=== PATIENT | female | born 1980 | race American Indian/Alaskan Native ===

== ENCOUNTER 2017-01-14 10:01 | Inpatient (IN) | payer MEDICAID, OTHER ==
[2017-01-14 10:02] VITALS: BMI 45.4
--- NOTE | 2017-01-14 11:02 | C.PDOC ---
Time Seen by Provider: 01/14/17 10:34 Chief Complaint (Nursing): Abnormal Labs Past Medical History Vital Signs: Last Vital Signs Temp 98.2 F 01/14/17 10:21 Pulse 74 01/14/17 10:21 Resp 20 01/14/17 10:21 BP 100/66 01/14/17 10:21 Pulse Ox 100 01/14/17 10:21 - Medical History PMH: Arthritis, Depression, Pneumonia (AGE 13) Denies: Chronic Kidney Disease - [facility] Procedures ESOPHAGOGASTRODUODENOSCOPY [EGD] W/CLOSED BIOPSY (03/08/14) REV JT REPL LOW EXT NEC (04/16/15) - Social History Hx Alcohol Use: No Hx Substance Use: No - Immunization History Hx Tetanus Toxoid Vaccination: No Hx Influenza Vaccination: No Hx Pneumococcal Vaccination: No ED Course And Treatment O2 Sat by Pulse Oximetry: 100
--- NOTE | 2017-01-14 11:10 | C.PDOC ---
History Of Present Illness 36 y/o female with Hx of Chronic Anemia presents to ED sent my PMD for low Hemoglobin and Hematrocrit results done on 01/08/17. Patient states "lowest it's been was 8" but is unsure of baseline. Onset Patient complaints of weakness and dyspnea on exertion for 1 week. Patient was previously advised to take iron supplements but it noncompliant. Patient denies heavy Menses, Peptic Ulcer Disease, GI Bleed or any other complaints at this time. REFERRED BY PMD FOR LOW H/H S/P OUTPT LABS 01/08. PS HAS CHRONIC ANEMIA "LOWEST IT 'S BEEN WAS 8" BUT DOES NOT KNOW BASELINE. NEW ONSET GEN WEAKNESS, VELASCO X 1 WEEK. PS WAS PREV ADVISED TO TAKE IRON SUPPLEMENTS BUT IS NONCOMPLIANT. DENIES HO HEAVY MENSES, PUD, GI BLEED EXAM NEG Time Seen by Provider: 01/14/17 10:34 Chief Complaint (Nursing): Abnormal Labs History Per: Patient History/Exam Limitations: no limitations Onset/Duration Of Symptoms: Days Current Symptoms Are (Timing): Still Present Past Medical History Reviewed: Historical Data, Nursing Documentation, Vital Signs Vital Signs: Last Vital Signs Temp 98.2 F 01/14/17 10:21 Pulse 74 01/14/17 10:21 Resp 20 01/14/17 10:21 BP 100/66 01/14/17 10:21 Pulse Ox 100 01/14/17 11:34 - Medical History PMH: Arthritis, Depression, Pneumonia (AGE 13) - [facility] Procedures ESOPHAGOGASTRODUODENOSCOPY [EGD] W/CLOSED BIOPSY (03/08/14) REV JT REPL LOW EXT NEC (04/16/15) Family History: States: No Known Family Hx - Social History Hx Alcohol Use: No Hx Substance Use: No - Immunization History Hx Tetanus Toxoid Vaccination: No Hx Influenza Vaccination: No Hx Pneumococcal Vaccination: No Review Of Systems Except As Marked, All Systems Reviewed And Found Negative. Constitutional: Negative for: Fever, Chills Respiratory: Positive for: Other (Dyspnea) Gastrointestinal: Negative for: Nausea, Vomiting, Diarrhea Neurological: Positive for: Weakness. Negative for: Headache Physical Exam - Physical Exam Appears: Non-toxic, No Acute Distress Skin: Normal Color, Warm Head: Atraumatic, Normacephalic Oral Mucosa: Moist Throat: Normal Neck: Normal ROM Cardiovascular: Rhythm Regular Respiratory: No Rales, No Rhonchi, No Wheezing Gastrointestinal/Abdominal: Soft, No Tenderness, No Guarding, No Rebound Extremity: Normal ROM, Capillary Refill (<2 seconds ) Neurological/Psych: Oriented x3, Normal Speech, Normal Cognition ED Course And Treatment - Laboratory Results Result Diagrams: 01/14/17 11:34 01/14/17 11:34 O2 Sat by Pulse Oximetry: 100 (RA) Pulse Ox Interpretation: Normal Progress - Re-Evaluation Re-evaluation Note: 01/14/17 12:07 D/W DR JIANG WILL ADMIT - Data Reviewed Data Reviewed: Lab, Diagnostic imaging, EKG, Old records - Continuity of Care Discussed patient case with:: Patient, PMD Disposition Counseled Patient/Family Regarding: Studies Performed, Diagnosis - Disposition Disposition: HOSPITALIZED Disposition Time: 12:37 Condition: STABLE - POA Present On Arrival: None - Clinical Impression Clinical Impression: Severe anemia - PA / WELLNESS MANAGER / Resident Statement MD/DO has reviewed & agrees with the documentation as recorded. MD/DO has examined the patient and agrees with the treatment plan. - Scribe Statement The provider has reviewed the documentation as recorded by the Ralphibodilon Doss All medical record entries made by the Mojgan were at my direction and personally dictated by me. I have reviewed the chart and agree that the record accurately reflects my personal performance of the history, physical exam, medical decision making, and the department course for this patient. I have also personally directed, reviewed, and agree with the discharge instructions and disposition. Decision To Admit - Pt Status Changed To: Hospital Disposition Of: Inpatient - Admit Certification Admit to Inpatient:: After my assessment, the patient will require hospitalization for at least two midnights. This is because of the severity of symptoms shown, intensity of services needed, and/or the medical risk in this patient being treated as an outpatient. - InPatient: Physician Admission Certification: I certify that this patient requires 2 or more midnights of care for the following reason:: SEE NOTE - . Bed Request Type: Regular Admitting Physician: Charly Jiang Patient Diagnosis: Severe anemia
[2017-01-14 11:38] LABS: BASO # 0.1 K/uL (0.0-0.2); BASO % 1.5 % (0.0-2.0); EOS # 0.1 K/uL (0.0-0.7); EOS % 2.1 % (0.0-4.0); HEMATOCRIT 19.9 % (34.0-47.0); LYMPH # 1.7 K/uL (1.0-4.3); LYMPH % 38.5 % (20.0-40.0); MEAN CELL VOLUME 53.9 fL (81.0-99.0); MEAN CORPUSCULAR HEMOGLOBIN 15.6 pg (27.0-31.0); MEAN CORPUSCULAR HGB CONC 28.9 g/dL (33.0-37.0); MEAN PLATELET VOLUME 8.7 fL (7.2-11.7); MONO # 0.5 K/uL (0.0-0.8); MONO % 10.3 % (0.0-10.0); NRBC % 0.1 % (0.0-2.0); RED CELL DISTRIBUTION WIDTH 20.7 % (11.5-14.5); WHITE BLOOD COUNT 4.4 K/uL (4.8-10.8)
[2017-01-14 11:44] LABS: CHLORIDE 103 mmol/L (98-107); SODIUM 136 mmol/L (132-148)
[2017-01-14 11:47] LABS: BLOOD UREA NITROGEN 8 mg/dL (7-17); CARBON DIOXIDE 24 mmol/L (22-30); GFR AFRICAN-AMERICAN > 60
[2017-01-14 11:48] LABS: CALCIUM 8.2 mg/dl (8.6-10.4); GLUCOSE,RANDOM 86 mg/dL (65-105)
[2017-01-14 12:21] LABS: RBC URINE < 1 /hpf (0-3); URINE BACTERIA MANY (<OCC); URINE BILIRUBIN NEGATIVE (NEGATIVE); URINE BLOOD 1+ (NEGATIVE); URINE COLOR Yellow (YELLOW); URINE GLUCOSE (UA) NORMAL (Normal); URINE KETONE NEGATIVE (NEGATIVE); URINE LEUKOCYTE ESTERASE TRACE Leu/uL (Negative); URINE PROTEIN NEGATIVE (NEGATIVE); WBC URINE 8 /hpf (0-5)
[2017-01-14 22:29] VITALS: RESP 20
[2017-01-15 06:35] LABS: IRON 11 ug/dL (37-170)
[2017-01-15 07:40] LABS: FOLATE 8.1 ng/mL
--- NOTE | 2017-01-15 07:41 | CP.PCM.CON ---
History of Present Illness - History of Present Illness History of Present Illness: This is a 36 year old woman admitted with symptomatic anemia. Patient had gastric bypass 13 years ago. Since then, she has not been compliant with vitamin supplements and has had chronic anemia. She was worked up with EGD 03/08/2014. The pathology result is in the computer but not the procedure note. She noted gradual onset on generalized weakness and shortness of breath over the past week. In the ER, the HGB was 5.7 with MCV 53.9. Iron level was 11, TIBC 407 and ferritin 3.5. In addition, the B12 level was low at 181. Patient denies having nausea, vomiting, abdominal pain, difficulty swallowing, heartburn. she denies having constipation, diarrhea, dark stools and rectal bleeding. Review of Systems - Review of Systems All systems: reviewed and no additional remarkable complaints except - Constitutional Constitutional: Weakness - Cardiovascular Cardiovascular: Dyspnea on Exertion - Respiratory Respiratory: Dyspnea on Exertion - Gastrointestinal Gastrointestinal: absent: Abdominal Pain, Constipation, Diarrhea, Dysphagia, Heartburn, Hematochezia, Melena, Nausea, Vomiting Past Patient History - Past Medical History & Family History Past Medical History?: Yes - Past Social History Smoking Status: Former Smoker - CARDIAC Hx Cardiac Disorders: No - PULMONARY Hx Pneumonia: Yes (AGE 13) - NEUROLOGICAL Hx Neurological Disorder: No - HEENT Hx HEENT Problems: No - RENAL Hx Chronic Kidney Disease: No - ENDOCRINE/METABOLIC Hx Endocrine Disorders: No - HEMATOLOGICAL/ONCOLOGICAL Hx Blood Disorders: No - INTEGUMENTARY Hx Dermatological Problems: No - MUSCULOSKELETAL/RHEUMATOLOGICAL Hx Arthritis: Yes Hx Falls: No - GASTROINTESTINAL Hx Gastrointestinal Disorders: No - GENITOURINARY/GYNECOLOGICAL Hx Genitourinary Disorders: No - PSYCHIATRIC Hx Depression: Yes Hx Substance Use: No - SURGICAL HISTORY Hx Surgeries: Yes Other/Comment: GSTRIC BYPASS -2002; X4 - ANESTHESIA Hx Anesthesia: Yes Hx Anesthesia Reactions: No Hx Malignant Hyperthermia: No Meds Allergies/Adverse Reactions: Allergies Allergy/AdvReac Type Severity Reaction Status Date / Time No Known Allergies Allergy Verified 03/07/14 10:42 - Medications Medications: Current Medications Bupropion HCl (Wellbutrin Sr 150 Mg) 150 mg PO DAILY [facility] Sertraline HCl (Zoloft) 100 mg PO DAILY [facility] Physical Exam - Constitutional Appears: No Acute Distress - Head Exam Head Exam: ATRAUMATIC, NORMOCEPHALIC - Eye Exam Eye Exam: EOMI, PERRL - Neck Exam Neck exam: Negative for: Lymphadenopathy, Thyromegaly - Respiratory Exam Respiratory Exam: NORMAL BREATHING PATTERN. absent: Rales, Rhonchi, Wheezes - Cardiovascular Exam Cardiovascular Exam: REGULAR RHYTHM, +S1, +S2. absent: Gallop, Rubs, Systolic Murmur - GI/Abdominal Exam GI & Abdominal Exam: Normal Bowel Sounds, Soft. absent: Mass, Organomegaly, Tenderness - Rectal Exam Rectal Exam: Deferred - Extremities Exam Extremities exam: Negative for: calf tenderness, pedal edema Results - Vital Signs Recent Vital Signs: Last Vital Signs Temp 98.4 F 01/15/17 07:25 Pulse 74 01/15/17 07:25 Resp 20 01/15/17 07:25 BP 127/77 01/15/17 07:25 Pulse Ox 99 01/15/17 07:25 - Labs Result Diagrams: 01/14/17 11:34 01/14/17 11:34 Labs: Laboratory Results - last 24 hr 01/14/17 01/15/17 01/15/17 13:32 06:06 06:06 Retic Count 1.0 Iron TIBC % Saturation Ferritin 3.5 Vitamin B12 181 L Stool Occult Blood Negative 01/15/17 06:06 Retic Count Iron 11 L TIBC 407 % Saturation 3 L Ferritin Vitamin B12 Stool Occult Blood Assessment & Plan (1) Severe anemia Assessment and Plan: Patient has severe anemia with low iron and B12 levels. The first stool for occult blood was negative. The anemia is most likely due to non-compliance with vitamin supplementation. Will check two additional stools for occult blood, methylmalonic acid level, intrinsic factor antibody and parietal cell antibody. When the hemoglobin is adequate, she may be discharged to follow up in the office. Status: Acute
[2017-01-15] MEDS: buPROPion SR 150 MG TABLET PO SCH (09:47)
[2017-01-15 10:02] LABS: HEMATOCRIT 22.5 % (34.0-47.0); MEAN CORPUSCULAR HEMOGLOBIN 16.2 pg (27.0-31.0); MEAN CORPUSCULAR HGB CONC 28.5 g/dL (33.0-37.0); MEAN PLATELET VOLUME 9.1 fL (7.2-11.7); RED CELL DISTRIBUTION WIDTH 22.8 % (11.5-14.5); WHITE BLOOD COUNT 5.7 K/uL (4.8-10.8)
[2017-01-15 10:10] LABS: MEAN CELL VOLUME 56.9 fL (81.0-99.0)
[2017-01-15 11:02] LABS: LYMPH # 1.4 K/uL (1.0-4.3); MONO # 0.5 K/uL (0.0-0.8)
[2017-01-15] MEDS ORDERED: Ferric Sodium Gluconat Complex 62.5 mg/5 ml Vial IVPB SCH (13:30)
--- NOTE | 2017-01-15 14:28 | CP.PCM.CON ---
History of Present Illness - History of Present Illness History of Present Illness: 36 yo woman with history of gastric bypass 13 years ago, with chronic anemia, c/ o fatigue and generalized weakness for a few weeks, found in PMDs office as part of regular blood work to have severe anemia and was sent to the hospital. Patient denies any BRBPR, steve, easy bruising or bleeding. Has not been taking iron or B12 supplements Denies heavy periods. Has 4 children. Is to be scheduled for revision of the bypass sometime in March Past Patient History - Past Medical History & Family History Past Medical History?: Yes - Past Social History Smoking Status: Former Smoker - CARDIAC Hx Cardiac Disorders: No - PULMONARY Hx Pneumonia: Yes (AGE 13) - NEUROLOGICAL Hx Neurological Disorder: No - HEENT Hx HEENT Problems: No - RENAL Hx Chronic Kidney Disease: No - ENDOCRINE/METABOLIC Hx Endocrine Disorders: No - HEMATOLOGICAL/ONCOLOGICAL Hx Blood Disorders: No - INTEGUMENTARY Hx Dermatological Problems: No - MUSCULOSKELETAL/RHEUMATOLOGICAL Hx Arthritis: Yes Hx Falls: No - GASTROINTESTINAL Hx Gastrointestinal Disorders: No - GENITOURINARY/GYNECOLOGICAL Hx Genitourinary Disorders: No - PSYCHIATRIC Hx Depression: Yes Hx Substance Use: No - SURGICAL HISTORY Hx Surgeries: Yes Other/Comment: GSTRIC BYPASS -2002; X4 - ANESTHESIA Hx Anesthesia: Yes Hx Anesthesia Reactions: No Hx Malignant Hyperthermia: No Meds Allergies/Adverse Reactions: Allergies Allergy/AdvReac Type Severity Reaction Status Date / Time No Known Allergies Allergy Verified 03/07/14 10:42 - Medications Medications: Current Medications Bupropion HCl (Wellbutrin Sr 150 Mg) 150 mg PO DAILY [facility] Last Admin: 01/15/17 09:47 Dose: 150 mg Cyanocobalamin (Vitamin B12 1000 Mcg/Ml Inj) 1,000 mcg SC DAILY [facility] Ferric Sodium Gluconate Complex (Ferrlecit) 125 mg IVPB DAILY [facility] Stop: 01/23/17 18:01 Folic Acid (Folic Acid) 1 mg PO DAILY [facility] Sertraline HCl (Zoloft) 100 mg PO DAILY [facility] Last Admin: 01/15/17 09:47 Dose: 100 mg Results - Vital Signs Recent Vital Signs: Last Vital Signs Temp 98.6 F 01/15/17 13:51 Pulse 61 01/15/17 13:51 Resp 20 01/15/17 13:51 BP 105/69 06/09/17 13:51 Pulse Ox 99 01/15/17 07:25 - Labs Result Diagrams: 01/15/17 06:06 01/14/17 11:34 Assessment & Plan (1) Severe anemia Assessment and Plan: Severe anemia, symptomatic, s/p 2 units of PRBCs, found on labs to have low iron stores and low B12. Work up ongoing, most likely secondary to menstrual bleeding and gastric bypass. Replace iron and B12. Have discussed with patient the importance of compliance with the supplements. Upon D/C patient is to have labs in 1-2 weeks. May need additional iron infusions Status: Acute
--- NOTE | 2017-01-15 14:38 | CP.PCM.HP ---
History of Present Illness - History of Present Illness History of Present Illness: CC: generalized weakness severe anemia HPI: 36 yo woman with history of gastric bypass 13 years ago, with chronic anemia, c/o fatigue and generalized weakness for a few weeks, found in PMDs office as part of regular blood work to have severe anemia and was sent to the hospital. Patient denies any BRBPR, steve, easy bruising or bleeding. Has not been taking iron or B12 supplements Denies heavy periods. Has 4 children. Is to be scheduled for revision of the bypass sometime in March Present on Admission - Present on Admission Any Indicators Present on Admission: No Review of Systems - Constitutional Constitutional: Weakness - EENT Additional comments: pale conjunctiva, anicteric sclera - Respiratory Respiratory: Dyspnea on Exertion - Gastrointestinal Gastrointestinal: absent: Melena, Nausea, Vomiting - Musculoskeletal Musculoskeletal: Muscle Weakness - Psychiatric Psychiatric: Anxiety Past Patient History - Past Medical History & Family History Past Medical History?: Yes - Past Social History Smoking Status: Former Smoker - CARDIAC Hx Cardiac Disorders: No - PULMONARY Hx Pneumonia: Yes (AGE 13) - NEUROLOGICAL Hx Neurological Disorder: No - HEENT Hx HEENT Problems: No - RENAL Hx Chronic Kidney Disease: No - ENDOCRINE/METABOLIC Hx Endocrine Disorders: No - HEMATOLOGICAL/ONCOLOGICAL Hx Blood Disorders: No - INTEGUMENTARY Hx Dermatological Problems: No - MUSCULOSKELETAL/RHEUMATOLOGICAL Hx Arthritis: Yes Hx Falls: No - GASTROINTESTINAL Hx Gastrointestinal Disorders: No - GENITOURINARY/GYNECOLOGICAL Hx Genitourinary Disorders: No - PSYCHIATRIC Hx Depression: Yes Hx Substance Use: No - SURGICAL HISTORY Hx Surgeries: Yes Other/Comment: GSTRIC BYPASS -2002; X4 - ANESTHESIA Hx Anesthesia: Yes Hx Anesthesia Reactions: No Hx Malignant Hyperthermia: No Meds Allergies/Adverse Reactions: Allergies Allergy/AdvReac Type Severity Reaction Status Date / Time No Known Allergies Allergy Verified 03/07/14 10:42 Physical Exam - Head Exam Head Exam: NORMAL INSPECTION - Eye Exam Eye Exam: absent: Scleral icterus Pupil Exam: NORMAL ACCOMODATION Additional comments: pale conjunctiva - ENT Exam ENT Exam: Mucous Membranes Moist - Neck Exam Neck exam: Positive for: Full Rom, Lymphadenopathy - Respiratory Exam Respiratory Exam: NORMAL BREATHING PATTERN - Cardiovascular Exam Cardiovascular Exam: REGULAR RHYTHM - GI/Abdominal Exam GI & Abdominal Exam: Soft. absent: Tenderness - Extremities Exam Extremities exam: Positive for: full ROM. Negative for: calf tenderness, pedal edema, tenderness Results - Vital Signs Recent Vital Signs: Last Vital Signs Temp 98.6 F 01/15/17 13:51 Pulse 61 01/15/17 13:51 Resp 20 01/15/17 13:51 BP 105/69 01/15/17 13:51 Pulse Ox 99 01/15/17 07:25 - Labs Result Diagrams: 01/15/17 06:06 01/14/17 11:34 Assessment & Plan - Assessment and Plan (Free Text) Assessment: Severe anemia Hx of depression r/o GI bleed Plan: Blood transfusion Anemia work-up Heme consult w/ Dr Hanson GI consult w/ Dr De León Psyche consult w/ Dr Chu Vasquez - Date & Time Date: 01/14/17 Time: 19:00
--- NOTE | 2017-01-15 14:49 | CP.PCM.PN ---
Subjective - Date & Time of Evaluation Date of Evaluation: 01/15/17 Time of Evaluation: 08:35 - Subjective Subjective: pt feels better s/p transfusion of 2 units Objective - Vital Signs/Intake and Output Vital Signs (last 24 hours): Temp Pulse Resp BP Pulse Ox 98.6 F 61 20 105/69 99 01/15/17 13:51 01/15/17 13:51 01/15/17 13:51 01/15/17 13:51 01/15/17 07:25 Intake and Output: 01/15/17 01/15/17 06:59 18:59 Intake Total 0 Balance 0 - Medications Medications: Current Medications Bupropion HCl (Wellbutrin Sr 150 Mg) 150 mg PO DAILY [facility] Last Admin: 01/15/17 09:47 Dose: 150 mg Cyanocobalamin (Vitamin B12 1000 Mcg/Ml Inj) 1,000 mcg SC DAILY [facility] Ferric Sodium Gluconate Complex (Ferrlecit) 125 mg IVPB DAILY [facility] Stop: 01/23/17 18:01 Folic Acid (Folic Acid) 1 mg PO DAILY [facility] Sertraline HCl (Zoloft) 100 mg PO DAILY [facility] Last Admin: 01/15/17 09:47 Dose: 100 mg - Constitutional Appears: Non-toxic - Eye Exam Eye Exam: absent: Scleral icterus Pupil Exam: PERRL - ENT Exam ENT Exam: Mucous Membranes Moist - Neck Exam Neck Exam: Full ROM, Lymphadenopathy - Respiratory Exam Respiratory Exam: NORMAL BREATHING PATTERN - Cardiovascular Exam Cardiovascular Exam: REGULAR RHYTHM - GI/Abdominal Exam GI & Abdominal Exam: Soft. absent: Tenderness - Extremities Exam Extremities Exam: Calf Tenderness, Pedal Edema - Neurological Exam Neurological Exam: Alert, Normal Gait, Oriented x3 Assessment and Plan - Assessment and Plan (Free Text) Assessment: Anemia, symptomatic Depression Plan: Seen by Heme/ GI post transfusion CBC IV iron
[2017-01-15] MEDS: Ferric Sodium Gluconat Complex 62.5 mg/5 ml Vial IVPB SCH (18:48)
--- NOTE | 2017-01-15 18:54 | US ---
HISTORY: r/o fibroids COMPARISON: None available. TECHNIQUE: Transabdominal and transvaginal pelvic ultrasound was performed. FINDINGS: UTERUS: Measures 8.9 x 4.7 x 5.6 cm. Normal in size and appearance. No fibroid or other mass lesion seen. ENDOMETRIUM: Measures 12 mm in diameter. There is small amount of fluid in the endometrial cavity bold. CERVIX: No cervical abnormality identified. RIGHT OVARY: Not visualized. LEFT OVARY: Measures 3.4 x 3.0 x 3.0 cm. No solid mass. Normal flow. There is a 2.1 cm simple cyst. FREE FLUID: Small amount of free fluid in the cul de sac is likely physiologic. OTHER FINDINGS: None. IMPRESSION: Small amount of fluid in the endometrial cavity, nonspecific. No evidence of fibroid uterus. The right ovary is not visualized. 2.1 cm simple cyst in the left ovary.
--- NOTE | 2017-01-15 18:56 | US ---
HISTORY: Abdominal pain COMPARISON: None. TECHNIQUE: Grayscale imaging was performed. FINDINGS: LIVER: Measures 20.2 cm. There is diffuse increased echogenicity of the liver parenchyma. No mass. No intrahepatic bile duct dilatation. GALLBLADDER: There are multiple gallstones. No wall thickening, pericholecystic fluid or positive sonographic Richardson's sign. COMMON BILE DUCT: Measures 3.0 mm. No stones. No dilatation. PANCREAS: Unremarkable as visualized. No mass. No ductal dilatation. RIGHT KIDNEY: Measures 11.6cm. Normal echogenicity. No calculus, mass, or hydronephrosis. LEFT KIDNEY: Measures 10.2cm. Normal echogenicity. No calculus, mass, or hydronephrosis. SPLEEN: Normal in size and contour. No mass. AORTA: No aneurysmal dilatation. IVC: Unremarkable. OTHER FINDINGS: None. IMPRESSION: Moderate hepatomegaly and hepatic steatosis. Cholelithiasis.
--- NOTE | 2017-01-15 20:59 | CON ---
DATE: 01/15/2017 CHIEF COMPLAINT AND REASON FOR CONSULTATION: The patient referred by Dr. Jiang for evaluation for depression and anxiety. The patient reports she has been seeing a psychiatrist from [facility] outpatient program, was giving her medication. HISTORY OF PRESENT ILLNESS: This is the case of a 36-year-old female with a history of chronic anemia. The patient was seen by her PMD, Dr. Salmeron. The patient had very low hemoglobin and hematocrit on patient's recent lab results. On admission, the patient's hemoglobin was 5.7, hematocrit was 19.9. The patient states she has history of anemia in the past and used to take supplements, but patient states that she was wondering why her anemia has worsened. The patient also on admission was noted to have very low B12 level. Her B12 level was only 181. The patient states that she has been feeling depressed, anxious, tires easily. Not complaining of chest pain and was seeing a psychiatrist from [place] who gave her Concerta 27 mg daily. The patient also is on Zoloft 100 mg daily and Wellbutrin 150 mg daily. PAST PSYCHIATRIC HISTORY: History of depression. No prior inpatient treatment. No suicidal history. MEDICAL HISTORY: As stated, history of severe anemia. DRUG AND ALCOHOL HISTORY: Denies any. PSYCHOSOCIAL HISTORY: The patient lives with family. LABORATORY DATA: The patient is receiving blood transfusion. Her last hemoglobin was 6.4, hematocrit was 22.5. Last level for B12 was 181. The patient's folate is 8.1. UA, positive for nitrates, presdnc of urine WBC 8, presence of many urine bacteria. test is negative. PHYSICAL EXAMINATION: VITAL SIGNS: Temperature 98.3, pulse rate 60, blood pressure is 122/69, respirations 20, oxygen saturation is 99%. REVIEW OF SYSTEMS: GENERAL: The patient is alert and oriented x 3. Feeling easily tired, at times feels very weak. The patient was getting blood transfusion when seen. SKIN: No diaphoresis. HEENT: No headache or dizziness. NECK: Supple. RESPIRATORY: Has mild dyspnea off and on. CARDIOVASCULAR: No palpitation. GASTROINTESTINAL: No nausea, no vomiting. EXTREMITIES: The patient reports no history of recent bleeding. MUSCULOSKELETAL: Feels weak. NEUROLOGIC: Alert and oriented x 3. GENITOURINARY: No dysuria. MENTAL STATUS EXAMINATION: A well-developed female who is obese, 268 pounds, height 5 feet 6 inches, oriented x 3. Mood is depressed, dysphoric and anxious at times. Affect is reactive. Speech spontaneous. Thought process coherent. Thought content: No overt psychosis. No suicidal or homicidal ideation. The patient states she wants to continue her psych medications which she has been taking for 2 years from psychiatrist in [facility] outpatient program. As stated, no psychosis. No suicidal or homicidal ideation. Attention and memory seems to be fair. Insight and judgment fair. Impulse control is fair. IMPRESSION: History of depression and anxiety as well as mood disorder secondary to medical problems. The patient also has severe anemia, Vit B12 deficiency PLAN AND RECOMMENDATION: The patient seen, meds reviewed. The patient has been referred and seen by RHEA Eugene, as well as Dr. Hanson for heme/ onc pathology for her blood problems. Psych holden, we will continue her psych medications, Zoloft 100 mg daily and Wellbutrin 150 mg daily. The patient may continue her Concerta 27 mg daily, however, this medicine is non-formulary. The patient may bring her medication from home and needs to be verified with the pharmacy and the patient may take her own medication while she is in the hospital. Continue treatment plan as outlined. Chu Mead MD cc: [id number] TT: 01/15/2017 20:58:52 Confirmation # [id number] Dictation # [id number] augusta [employer]
[2017-01-16 08:26] VITALS: O2SAT 97
[2017-01-16] MEDS: Ferric Sodium Gluconat Complex 62.5 mg/5 ml Vial IVPB SCH (10:12)
[2017-01-16] MEDS: buPROPion SR 150 MG TABLET PO SCH (10:13)
[2017-01-16 11:40] LABS: HEMATOCRIT 25.7 % (34.0-47.0); MEAN CELL VOLUME 57.3 fL (81.0-99.0); MEAN CORPUSCULAR HEMOGLOBIN 17.3 pg (27.0-31.0); MEAN CORPUSCULAR HGB CONC 30.1 g/dL (33.0-37.0); RED CELL DISTRIBUTION WIDTH 26.7 % (11.5-14.5); WHITE BLOOD COUNT 6.1 K/uL (4.8-10.8)
[2017-01-16 12:06] LABS: CHLORIDE 103 mmol/L (98-107); POTASSIUM 3.9 mmol/L (3.6-5.2); SODIUM 136 mmol/L (132-148)
[2017-01-16 12:08] LABS: ALB/GLOB RATIO 1.3 (1.0-2.1); ALKALINE PHOSPHATASE 47 U/L (38-126); AST/SGOT 21 U/L (14-36); BILIRUBIN,TOTAL 0.5 mg/dL (0.2-1.3); CARBON DIOXIDE 22 mmol/L (22-30); GFR AFRICAN-AMERICAN > 60
[2017-01-16 12:09] LABS: ALT/SGPT 19 U/L (9-52); BLOOD UREA NITROGEN 8 mg/dL (7-17); CALCIUM 8.6 mg/dl (8.6-10.4); GLUCOSE,RANDOM 98 mg/dL (65-105)
--- NOTE | 2017-01-16 12:10 | CP.PCM.PN ---
Subjective - Date & Time of Evaluation Date of Evaluation: 01/16/17 Time of Evaluation: 12:04 - Subjective Subjective: COVERING DR CHOUDHARY No bleeding or pain. Stool ob x 1 is negative. Hgb now >7. Objective - Vital Signs/Intake and Output Vital Signs (last 24 hours): Temp Pulse Resp BP Pulse Ox 98.2 F 66 20 110/73 97 01/16/17 08:02 01/16/17 08:02 01/16/17 08:02 01/16/17 08:02 01/16/17 08:02 Intake and Output: 01/16/17 01/16/17 06:59 18:59 Intake Total 550 Output Total 500 Balance 50 - Medications Medications: Current Medications Bupropion HCl (Wellbutrin Sr 150 Mg) 150 mg PO DAILY [facility] Last Admin: 01/16/17 10:13 Dose: 150 mg Cyanocobalamin (Vitamin B12 1000 Mcg/Ml Inj) 1,000 mcg SC DAILY [facility] Last Admin: 01/16/17 10:13 Dose: 1,000 mcg Ferric Sodium Gluconate Complex (Ferrlecit) 125 mg IVPB DAILY [facility] Stop: 01/23/17 18:01 Last Admin: 01/16/17 10:12 Dose: 125 mg Folic Acid (Folic Acid) 1 mg PO DAILY [facility] Last Admin: 01/16/17 10:14 Dose: 1 mg Sertraline HCl (Zoloft) 100 mg PO DAILY [facility] Last Admin: 01/16/17 10:13 Dose: 100 mg - Labs Labs: 01/16/17 11:26 - Constitutional Appears: No Acute Distress - Head Exam Head Exam: ATRAUMATIC, NORMOCEPHALIC - Eye Exam Eye Exam: EOMI, PERRL - Respiratory Exam Respiratory Exam: NORMAL BREATHING PATTERN - Cardiovascular Exam Cardiovascular Exam: REGULAR RHYTHM - GI/Abdominal Exam GI & Abdominal Exam: Soft, Normal Bowel Sounds. absent: Tenderness - Extremities Exam Extremities Exam: Normal Inspection Assessment and Plan (1) Iron deficiency anemia Assessment & Plan: Likely due to lack of replacement following bypass. Awaiting stool occult blood. Amenable to outpatient follow up and work up if clinically stable for discharge. Status: Acute (2) B12 deficiency Assessment & Plan: Replacement therapy needed as outpatient. Follow up with Dr Choudhary after discharge. Status: Acute (3) S/P gastric bypass Assessment & Plan: As above. Status: Chronic
--- NOTE | 2017-01-16 17:21 | PN ---
DATE: 01/16/2017 SUBJECTIVE: The patient is seen. The patient will be going home today. She is feeling much better. The patient had blood transfusion. Her last H and H is 7.7/25.7. The patient also is compliant wi th her psych medications. The patient is advised to follow up with a psychiatrist outside, as well a s to follow up with Dr. Rosio Hanson her embalmer apprentice as patient has history of chronic anemia an d also with her primary care doctor, Dr. Jiang. The patient reports history of gastric bypass about 13 years ago. VITAL SIGNS: Temperature is 98.2, pulse rate 66, blood pressure 110/73, respirations 20, oxygen sats 97. REVIEW OF SYSTEMS: GENERAL: The patient is alert, oriented x 3 in her room with the nurse who is doing her discharge pl an. SKIN: No pruritus. HEENT: No headache, no dizziness, no blurring of vision. NECK: Supple. RESPIRATORY: No dyspnea. CARDIOVASCULAR: No chest pain. GASTROINTESTINAL: The patient is not complaining of abdominal pain, no nausea, no vomiting. EXTREMITIES: No paresthesia, no numbness. The patient is ambulatory. NEUROLOGIC: Alert and oriented x 3. GENITOURINARY: No dysuria. MENTAL STATUS EXAMINATION: Obese female, looks stated age. Alert, oriented x 3. Mood is brighter. Affect is reactive. Speech spontaneous. Thought process coherent. Thought content: The patient w ill be going home today. The patient states she will follow up with her embalmer apprentice as well as her primary care doctor. No psychosis, no suicidal ideation stated. Attention and memory seem to be johana r. Insight and judgment fair. Impulse control is fair. IMPRESSION: History of mood disorder secondary to medical condition, history of anemia. PLAN AND RECOMMENDATIONS: The patient seen, meds reviewed. Continue present management. Continue p resent psych meds. The patient can follow up with her psych doctor at [facility] outpatient program once discharged. Chu Mead MD cc: [id number] TT: 01/16/2017 17:20:05 Confirmation # [id number] Dictation # [id number]
[2017-01-16 17:23] VITALS: BP 109/73; PULSE 76; TEMP 98.3
[2017-01-16 17:23] LABS: HEMATOCRIT 22.8 % (35.0-45.0); HEMOGLOBIN 6.7 g/dL (11.7-15.5); RDW 24.8 % (11.0-15.0)
[2017-01-17 10:09] LABS: HEMOGLOBIN F <1.0 Percent (<2.0)
[2017-01-18 14:49] LABS: PARIETAL CELL AB SCREEN Negative (Negative)
[2017-01-19 04:26] LABS: INTRINSIC FACTOR BLOCK AB Negative (Negative)
== END 2017-01-16 18:00 | disposition home or self-care (01) | DRG 395 ==
LOC: C.ER 10:01 → C.9E 12:38 → C.3T 16:44 → OBSVTOIN 01-15 10:56
PROVIDERS: ADMIT Internal Medicine; ATTEND Internal Medicine
DX: D50.9 Iron deficiency anemia, unspecified (principal); E53.8 Deficiency of other specified B group vitamins; F32.9 Major depressive disorder, single episode, unspecified; Z79.899 Other long term (current) drug therapy; Z87.01 Personal history of pneumonia (recurrent); Z87.891 Personal history of nicotine dependence; Z91.19 Patient's noncompliance with other medical treatment and regimen; Z98.84 Bariatric surgery status

== ENCOUNTER 2017-12-06 07:16 | Day surgery (SDC) | payer OTHER ==
[2017-12-06 07:59] VITALS: BMI 47.2
[2017-12-06 08:19] LABS: HEMOGLOBIN 12.4 g/dL (11.0-16.0); MEAN CELL VOLUME 85.9 fL (81.0-99.0); MEAN CORPUSCULAR HGB CONC 33.8 g/dL (33.0-37.0); MEAN PLATELET VOLUME 9.9 fL (7.2-11.7); RBC 4.29 Mil/uL (3.80-5.20); RED CELL DISTRIBUTION WIDTH 14.2 % (11.5-14.5)
[2017-12-06 08:31] LABS: ALB/GLOB RATIO 1.2 (1.0-2.1); ALBUMIN 4.2 g/dL (3.5-5.0); ALT/SGPT 15 U/L (9-52); AST/SGOT 27 U/L (14-36); BLOOD UREA NITROGEN 7 mg/dL (7-17); CALCIUM 8.7 mg/dl (8.6-10.4); GFR AFRICAN-AMERICAN > 60; GFR NON-AFRICAN AMERICAN > 60
== END 2017-12-06 10:45 | disposition home or self-care (01) ==
LOC: C.CATHLAB 07:16
PROVIDERS: ATTEND Internal Medicine
DX: R42 Dizziness and giddiness (principal); E66.9 Obesity, unspecified; Z68.42 Body mass index [BMI] 45.0-49.9, adult